=== PATIENT | female | born 1985 | race Caucasian/White ===

== ENCOUNTER 2024-03-26 07:30 | Outpatient (RCR) | payer BC, SELFPAY ==
--- NOTE | 2024-01-16 16:02 | PT.OTN ---
Current Diagnoses Mixed incontinence (01/16/24) Other female genital prolapse (01/16/24) Physical Therapy Treatment Note PT-OP-A Visit Information Start: 01/10/24 20:03 Freq: Status: Active Protocol: Document 01/16/24 07:32 LRN (Rec: 01/16/24 08:20 LRN [id number]) Out-Patient Physical Therapy Visit Information Visit Information Visit Type Initial Evaluation Visit Start Time 07:32 Visit Stop Time 08:19 Visit Number Evaluation Information Evaluation Date 01/16/24 Precautions Precautions Plan for general surgeon assessment for bleeding with BMs, back/neck pain. PT-OP-B Current Condition Start: 01/10/24 20:03 Freq: Status: Active Protocol: Document 01/16/24 07:32 LRN (Rec: 01/16/24 08:20 LRN [id number]) Current Condition History of Current Condition Onset Date 08/17/23 of angelo. Current Complaints Tightness across PF History of Current Condition Post bladder prolapse with first child 08/17/23. When she beared down she felt a bulge, then heaviness, then constant need to urinate all day. She feels heaviness ( initially felt bulge) with sit <>stand and with walking (baby in front pack carrier)/ exercising. Falling out feeling has gone away because of granulation tissue at opening was surgically fixed 2 -3 wks ago (tissue excised and cauterized). Pt delivered her 8#10 oz daughter in supine and reports had borderline 3rd degree tear up to sphincter and up to labia (top ), with 2 stitches in the sphincter ms to reinforce repair. She reports drinking a gallon of water a day ( reported wgt is 160#). Prior Treatments and Tests None Future Testing and Treatments Planned Is waiting to have Dr. garrett with general surgeon for bleeding with BMs. Treatment Goals Patient/Caregiver Goals Pt goals: Pt will improve PF strength to be able to sit<>stand and exercise without leaking, Pt will be able to strengthen posterior PF to eliminate uncontrolled flatulence. HEP. Prior Functional Status Baseline Function- Other During had occasional pain in the R hip below pubic symphasis, near vaginal opening. Current Functional Impairments (Reported) Functional Limitations- ADL's Postural deviations (elevated L shoulder and scapula, head/ neck tilted L). Pt is R handed and holds her baby on her L side to work. Functional Limitations- Recreation/ She reports currenty doing a Hobbies Marvin routine, Beach Body Ex on demand, that she did prior to . 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 No childcare at home while working. Borderline 3rd degree tear up to sphincter and up to labia with 2 stitches in spincter ms . Back/neck pain. PT-OP-C Subjective Start: 01/10/24 20:03 Freq: Status: Active Protocol: Document 01/16/24 07:32 LRN (Rec: 01/16/24 13:10 LRN [id number]) Patient Questionnaires Pelvic Pain and Urgency/Frequency Patient Symptom Scale Pelvic Pain Score 17 OP-PT Pain Assessment Location Low back Pain Location Details Across low back. Intensity 4 Scale Used Numeric (0 - 10) Lower Abdomen Pain Location Details Lower abdomen at symphysis pubis and anterior hips Intensity 3 Scale Used Numeric (0 - 10) L Scapula Pain Location Details Medial border of scapula Intensity 6 Scale Used Numeric (0 - 10) PT-OP-I Pelvic Floor Start: 01/10/24 20:03 Freq: Status: Active Protocol: Document 01/16/24 07:32 LRN (Rec: 01/16/24 08:20 LRN [id number]) Pelvic Floor Assessment Urine Urinary Symptoms Urge Sensation,Prolapse, Hesitancy,Dribbling After Urination,Incomplete Emptying, Falling Out Feeling/Heavy Other Urinary Symptoms Heaviness feeling and tightness around the vaginal canal. No feeling of falling out. Leakage Size Small Leakage Cause Exercise,Urge Leaks Per Day unknown Voiding Frequency 8-12x/day Nocturia Leaks at night. Urinates 2x/ night,when Pads Used In 24 Hours 2 Urine Pad Type Panty Liner Bowel Bowel Symptoms Uncontrolled Flatulence,Pain Other Bowel Symptoms Sudden onset with feeling of not able to hold bowels. Has bleeding with BMs due to possibly fissure that is not healing. Pain with BMs. Drinks Metamucil and stool softner daily. Bowel Movement Frequency Daily [place] Stool Chart Type 1-7 4 Pelvic Clock Pelvic Clock 3-6 Tenderness Pelvic Clock 6-9 Tenderness Pelvic Clock Other Extreme tender at 2-9 of PF clock. Inter-Rectal Assessment Deferred due to pending assessment by MD tomorrow. Prolapse Cystocele Grade 2 Perineal Descent Resting Absent Bearing Absent Contraction Ability Manual Muscle Testing Left 2 Manual Muscle Testing Right 2 Manual Muscle Testing Anterior 1 Manual Muscle Testing Posterior 2 Muscle Endurance (Seconds) 6 Number of Quick Contractions In 10 4 Seconds PT-OP-J Posture/Palpation/Skin Start: 01/10/24 20:03 Freq: Status: Active Protocol: Document 01/16/24 07:32 LRN (Rec: 01/16/24 08:20 LRN [id number]) Posture Evaluation Position Standing Head/C-Spine Posture Side Bent Right,C-Spine Flattened Shoulder Posture (L) Elevated Scapula Posture (L) Elevated Pelvis Posture Anteriorly Tilted PT-OP-K Range of Motion Start: 01/10/24 20:03 Freq: Status: Active Protocol: Document 01/16/24 07:32 LRN (Rec: 01/16/24 08:20 LRN [id number]) Lumbar Spine Range of Motion Lumbar Spine Active Degrees Testing Position Standing Flexion 110 Extension 15 Rotation Left 45 Rotation Right 40 Lateral Flexion Left 10 Lateral Flexion Right 15 Hip Goniometric Range of Motion Hip Right Passive Testing Position Supine Internal Rotation 20 External Rotation 55 Left Passive Testing Position Supine Internal Rotation 25 External Rotation 50 PT-OP-M Strength Start: 01/10/24 20:03 Freq: Status: Active Protocol: Document 01/16/24 07:32 LRN (Rec: 01/16/24 08:20 LRN [id number]) Hip Strength Hip Manual Muscle Testing Right Flexion (L2) 4+ Good+ Extension (S1) 3+ Fair+ Adduction 3 Fair External Rotation 3+ Fair+ Internal Rotation 3+ Fair+ Left Flexion (L2) 4+ Good+ External Rotation 3+ Fair+ Internal Rotation 5 Normal PT-OP-Q Treatments Start: 01/10/24 20:03 Freq: Status: Active Protocol: Document 01/16/24 07:32 LRN (Rec: 01/16/24 13:14 LRN [id number]) Self-Care/Home Management Treatment Education Other Education Discussed results of evaluation, goals, treatment, and plan of care (POC) with pt , attendance/cx/dns policy; pt agreeable to evaluation, goals, treatment, attendance/ cx/dns policy and POC. Discussed and educated pt in specifics for completion of in use of Bladder Diary and I/S in tracking for 1 week. Activities Self-Care/Home Management Activities Issued & reviewed HEP: Syl ex's and discussed exercise of Quick Flicks, Long Holds and Aggravators (sit>stand, walking, ex). PT-OP-T Assessment and Plan Start: 01/10/24 20:03 Freq: Status: Active Protocol: Document 01/16/24 07:32 LRN (Rec: 01/16/24 08:20 LRN [id number]) Physical Therapy Assessment Rehab Potential Rehabilitation Potential Good Evaluation Complexity Number of Personal Factors/Comorbidities 1-2 Number of Body Systems Impaired 4 or More Clinical Presentation at Evaluation Evolving Impairments Impairments Activity Tolerance,Pain, Posture,ROM,Soft Tissue Mobility,Strength,Transfers Other Impairments Core weakness. Pt not yet checked for diastasis rectus. Mixed urinary incontinence ( primarily stress incontinence) . Uncontrolled flatulence, bleeding with BM's that is currently medically being assessed for. Goals Five Impairment PF pain 3-9 of PF clock and at transverse perineum Short Term Goal (STG) Decrease PF pain with pressure with pt able to tolerate use of Vemg biofeedback for PF strengthening. STG Duration 02/28/24 Forming And Assembling Supervisor Goal (LTG) Decrease PF pain with pt able to perform 7-8 PF contractions in 10 secs and hold a PF contraction for 10 secs per Vemg assessment. LTG Duration 05/10/24 Four Impairment PF heaviness, occasional pain on R side PF (transv perineum) Short Term Goal (STG) Improve core strength with no doming present with head lift. STG Duration 02/28/24 Usp Goal (LTG) Improve PF/core strength and hip mobility to eliminate heaviness and pain of abdomen and R PF. LTG Duration 05/10/24 Three Impairment Stress urinary incontinence w/ primarily sit>stand, walking, exercise Short Term Goal (STG) Pt will demonstrate knowledge of urge deference technique to eliminate urinary leakage with a strong urge. STG Duration 02/28/24 Usp Goal (LTG) Reduce PF pain and improve PF strength to be able to sit<> stand and exercise without leaking, LTG Duration 05/10/24 Two Impairment Posterior PF weakness w/ uncontrolled flatulence, PUF 17 Short Term Goal (STG) Pt educated in log roll transfer to decrease core pressure and improve gas plant specialist PF strength. STG Duration 02/28/24 Usp Goal (LTG) Pt will be able to strengthen posterior PF to eliminate uncontrolled flatulence. LTG Duration 05/10/24 One Impairment Pt lacks an independent self care PF HEP. Short Term Goal (STG) Pt will report reduced LBP with improved body mechanics for ADLs at home, and demonstrate knowledge of proper sitting/standing posture. STG Duration 02/28/24 Usp Goal (LTG) Pt will be independent in an effective self care HEP for core/hip strengthening and mobility ex's. LTG Duration 04/10/24 Assessment Summary Assessment Pt is a 38 yo female, post- ~5 months with daughter born 08/17/23 being seen for stress incontinence with sit> stand, walking ex (holding baby in front pack). Pt's feeling of falling out has resolved following surgery and now is noting incontinence with stress and with sudden urge. She has slightly limited trunk R SB mobility, and is decr'd in hip mobility with IR and mildly with ER; and decr'd hip strength with occasional pain at area of R transverse perineum. Postural deviation of a head tilted right, elevated L shoulder & scapula. PUF score 17. The pt is extremely tender to palpation in the PF and did not tolerate much pressure; therefore progress is expected to be slow. The pt will benefit from skilled physical therapy to achieve the above stated goals. Physical Therapy Plan Frequency and Duration Frequency of Treatment 1x/Week Duration of treatment (weeks) 16 Plan of Care Start Date 01/16/24 Plan of Care End Date 05/10/24 Therapeutic Interventions Therapeutic Interventions Coordination Training,Home Exercise Program,Joint Mobilizations,Manual Therapy, Neuromuscular Re-education, Patient/Caregiver Education, Self-Care/Home Management,Soft Tissue Mobilization,Taping, Therapeutic Activities, Therapeutic Exercises Modalities Biofeedback Next Visit Focus/Plan Next Note Type Treatment Note Next Visit Plan Gentle PF stretching (most tender 3-9 of PF clock) working towards use of Vemg placement for assessment; assess for proper deep breathing. Hip stretches: R>L IR, for 1-2 wks: R ER, trunk SB left. Reduction of intra-abdominal pressure with transfers, exercise, and proper breathing with ADLs/body mechanics. Education in vulvar/genital care. Biofeedback assessment/ training for PF relaxation with vaginal/rectal/surface sensor(s) when vaginal infection cleared (1-2 wks). POC: Pt education, Manual therapy. Biofeedback with vaginal sensor. Therapeutic Exercises, Therapeutic Activities, Neuromuscular Reeducation.
--- NOTE | 2024-01-23 16:15 | PT.OTN ---
Current Diagnoses Mixed incontinence (01/23/24) Other female genital prolapse (01/23/24) Physical Therapy Treatment Note PT-OP-A Visit Information Start: 01/10/24 20:03 Freq: Status: Active Protocol: Document 01/23/24 07:33 LRN (Rec: 01/23/24 08:19 LRN [id number]) Out-Patient Physical Therapy Visit Information Visit Information Visit Type Treatment Note Visit Start Time 07:31 Visit Stop Time 08:12 Visit Number 2 Evaluation Information Evaluation Date 01/16/24 Precautions Precautions Plan for general surgeon assessment for bleeding with BMs, back/neck pain. PT-OP-B Current Condition Start: 01/10/24 20:03 Freq: Status: Active Protocol: Document 01/16/24 07:32 LRN (Rec: 01/16/24 08:20 LRN [id number]) Current Condition History of Current Condition Onset Date 08/17/23 of angelo. Current Complaints Tightness across PF History of Current Condition Post bladder prolapse with first child 08/17/23. When she beared down she felt a bulge, then heaviness, then constant need to urinate all day. She feels heaviness ( initially felt bulge) with sit <>stand and with walking (baby in front pack carrier)/ exercising. Falling out feeling has gone away because of granulation tissue at opening was surgically fixed 2 -3 wks ago (tissue excised and cauterized). Pt delivered her 8#10 oz daughter in supine and reports had borderline 3rd degree tear up to sphincter and up to labia (top ), with 2 stitches in the sphincter ms to reinforce repair. She reports drinking a gallon of water a day ( reported wgt is 160#). Prior Treatments and Tests None Future Testing and Treatments Planned Is waiting to have Dr. garrett with general surgeon for bleeding with BMs. Treatment Goals Patient/Caregiver Goals Pt goals: Pt will improve PF strength to be able to sit<>stand and exercise without leaking, Pt will be able to strengthen posterior PF to eliminate uncontrolled flatulence. HEP. Prior Functional Status Baseline Function- Other During had occasional pain in the R hip below pubic symphasis, near vaginal opening. Current Functional Impairments (Reported) Functional Limitations- ADL's Postural deviations (elevated L shoulder and scapula, head/ neck tilted L). Pt is R handed and holds her baby on her L side to work. Functional Limitations- Recreation/ She reports currenty doing a Hobbies Marvin routine, Beach Body Ex on demand, that she did prior to . 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 No childcare at home while working. Borderline 3rd degree tear up to sphincter and up to labia with 2 stitches in spincter ms . Back/neck pain. PT-OP-C Subjective Start: 01/10/24 20:03 Freq: Status: Active Protocol: Document 01/23/24 07:33 LRN (Rec: 01/23/24 08:19 LRN [id number]) OP-PT Subjective Patient Comments Patient Comments c/o Pain across the lower abdomen with TA contraction. States no leakage with urge, only when standing after voiding or with sit<>stand transfer. PT-OP-I Pelvic Floor Start: 01/10/24 20:03 Freq: Status: Active Protocol: Document 01/16/24 07:32 LRN (Rec: 01/16/24 08:20 LRN [id number]) Pelvic Floor Assessment Urine Urinary Symptoms Urge Sensation,Prolapse, Hesitancy,Dribbling After Urination,Incomplete Emptying, Falling Out Feeling/Heavy Other Urinary Symptoms Heaviness feeling and tightness around the vaginal canal. No feeling of falling out. Leakage Size Small Leakage Cause Exercise,Urge Leaks Per Day unknown Voiding Frequency 8-12x/day Nocturia Leaks at night. Urinates 2x/ night,when Pads Used In 24 Hours 2 Urine Pad Type Panty Liner Bowel Bowel Symptoms Uncontrolled Flatulence,Pain Other Bowel Symptoms Sudden onset with feeling of not able to hold bowels. Has bleeding with BMs due to possibly fissure that is not healing. Pain with BMs. Drinks Metamucil and stool softner daily. Bowel Movement Frequency Daily [place] Stool Chart Type 1-7 4 Pelvic Clock Pelvic Clock 3-6 Tenderness Pelvic Clock 6-9 Tenderness Pelvic Clock Other Extreme tender at 2-9 of PF clock. Inter-Rectal Assessment Deferred due to pending assessment by MD tomorrow. Prolapse Cystocele Grade 2 Perineal Descent Resting Absent Bearing Absent Contraction Ability Manual Muscle Testing Left 2 Manual Muscle Testing Right 2 Manual Muscle Testing Anterior 1 Manual Muscle Testing Posterior 2 Muscle Endurance (Seconds) 6 Number of Quick Contractions In 10 4 Seconds PT-OP-J Posture/Palpation/Skin Start: 01/10/24 20:03 Freq: Status: Active Protocol: Document 01/16/24 07:32 LRN (Rec: 01/16/24 08:20 LRN [id number]) Posture Evaluation Position Standing Head/C-Spine Posture Side Bent Right,C-Spine Flattened Shoulder Posture (L) Elevated Scapula Posture (L) Elevated Pelvis Posture Anteriorly Tilted PT-OP-K Range of Motion Start: 01/10/24 20:03 Freq: Status: Active Protocol: Document 01/16/24 07:32 LRN (Rec: 01/16/24 08:20 LRN [id number]) Lumbar Spine Range of Motion Lumbar Spine Active Degrees Testing Position Standing Flexion 110 Extension 15 Rotation Left 45 Rotation Right 40 Lateral Flexion Left 10 Lateral Flexion Right 15 Hip Goniometric Range of Motion Hip Right Passive Testing Position Supine Internal Rotation 20 External Rotation 55 Left Passive Testing Position Supine Internal Rotation 25 External Rotation 50 PT-OP-M Strength Start: 01/10/24 20:03 Freq: Status: Active Protocol: Document 01/16/24 07:32 LRN (Rec: 01/16/24 08:20 LRN [id number]) Hip Strength Hip Manual Muscle Testing Right Flexion (L2) 4+ Good+ Extension (S1) 3+ Fair+ Adduction 3 Fair External Rotation 3+ Fair+ Internal Rotation 3+ Fair+ Left Flexion (L2) 4+ Good+ External Rotation 3+ Fair+ Internal Rotation 5 Normal PT-OP-Q Treatments Start: 01/10/24 20:03 Freq: Status: Active Protocol: Document 01/23/24 07:33 LRN (Rec: 01/23/24 08:19 LRN [id number]) Therapeutic Exercises Supine Exercises Wedge/Kegel/hip AB Reps/Minutes quick x 10 & long hold (10 secs) x 8 Wedge/Kegel Reps/Minutes quick x 1 & long hold (10 secs ) Comments pt c/o tightness across lower abdomen with long holds Kegel Supine Exercise Name Kegel w/o use of substitute ms . Reps/Minutes 10 SH x 4 (10') Comments At end of 4 reps pt reported groin pain, xtra time for kegel trng. Therapeutic Activity Therapeutic Activity Transfers coordinating breath/Kegel Reps/Minutes 8' Comments Cuing for sequencing of each step. Manual Therapy Treatment Consent Patient gave verbal consent for manual Yes treatment Soft Tissue Mobilization External PF Body Location Superficial transverse perineal, ischio & bulbo - cavernosus ms Mobilization Type Trigger Point Release Intensity/Depth Superficial Comments Pt very tender to touch, but had + response with fairly quick ms relaxation w/ treatment. Self-Care/Home Management Treatment Activities Self-Care/Home Management Activities Issued & reviewed HEP: Transfers w/core pressure mgmt /Kegel & Kegel/TA with hip ER & hip ER strengthening. PT-OP-T Assessment and Plan Start: 01/10/24 20:03 Freq: Status: Active Protocol: Document 01/23/24 07:33 LRN (Rec: 01/23/24 08:19 LRN [id number]) Physical Therapy Assessment Goals Five Impairment PF pain 3-9 of PF clock and at transverse perineum Short Term Goal (STG) Decrease PF pain with pressure with pt able to tolerate use of Vemg biofeedback for PF strengthening. STG Duration 02/28/24 Marshmallow Maker Goal (LTG) Decrease PF pain with pt able to perform 7-8 PF contractions in 10 secs and hold a PF contraction for 10 secs per Vemg assessment. LTG Duration 05/10/24 Four Impairment PF heaviness, occasional pain on R side PF (transv perineum) Short Term Goal (STG) Improve core strength with no doming present with head lift. STG Duration 02/28/24 Penitentiary Goal (LTG) Improve PF/core strength and hip mobility to eliminate heaviness and pain of abdomen and R PF. LTG Duration 05/10/24 Three Impairment Stress urinary incontinence w/ primarily sit>stand, walking, exercise Short Term Goal (STG) Pt will demonstrate knowledge of urge deference technique to eliminate urinary leakage with a strong urge. STG Duration 02/28/24 Marshmallow Maker Goal (LTG) Reduce PF pain and improve PF strength to be able to sit<> stand and exercise without leaking, LTG Duration 05/10/24 Two Impairment Posterior PF weakness w/ uncontrolled flatulence, PUF 17 Short Term Goal (STG) Pt educated in log roll transfer to decrease core pressure and improve chronic condition nurse PF strength. STG Duration 02/28/24 Penitentiary Goal (LTG) Pt will be able to strengthen posterior PF to eliminate uncontrolled flatulence. LTG Duration 05/10/24 One Impairment Pt lacks an independent self care PF HEP. Short Term Goal (STG) Pt will report reduced LBP with improved body mechanics for ADLs at home, and demonstrate knowledge of proper sitting/standing posture. STG Duration 02/28/24 Marshmallow Maker Goal (LTG) Pt will be independent in an effective self care HEP for core/hip strengthening and mobility ex's. 01/23/24: HEP: Transfers w/ core pressure mgmt/Kegel & Kegel/TA with hip ER & hip ER strengthening. LTG Duration 04/10/24 progressed Assessment Summary Assessment Pt is a 38 yo female, post- ~5 months with daughter born 08/17/23 being seen for stress incontinence with sit> stand, walking for ex (holding baby in front pack) with falling out feeling resolved after surgery; decr'd slight trunk R SB mobility, and decr' d hip IR/mild ER mobility and hip strength with occasional pain at R transverse perineum. Standing postural changes from . Today, the pt shows good understanding of proper core pressure mgmt with transfers. Further review of deep breathing and Kegel/hip AB ex is needed. Pt had poor tolerance to PF palpation; therefore chose to start with release of external PF ms to relieve pain, + response to external PF stretching with lessening of pressure feeling in lower ab after treatment and pt feeling like she had worked the muscles. Physical Therapy Plan Frequency and Duration Frequency of Treatment 1x/Week Duration of treatment (weeks) 16 Plan of Care Start Date 01/16/24 Plan of Care End Date 05/10/24 Next Visit Focus/Plan Next Note Type Treatment Note Next Visit Plan Check for urinary leakage and need for urge deference technique. Review/assess for proper deep breathing. Review Kegels/Hip AB strengthening ( clamshell, hip AB) & transfers managing core pressure. Next : Educate in log roll transfer to decrease core pressure and improve chronic condition nurse PF strength. Gentle PF stretching (most tender 3-9 of PF clock) working towards use of Vemg placement for assessment. Hip stretches: R>L IR, for 1-2 wks: R ER, trunk SB left. Ex 's for postural changes. Monitor for behavioral changes for reduction of intra- abdominal pressure with transfers, exercise, and proper breathing with ADLs/ body mechanics. Education in vulvar/genital care. Biofeedback assessment/ training for PF relaxation with vaginal/rectal/surface sensor(s) when vaginal infection cleared (1-2 wks). POC: Pt education, Manual therapy. Biofeedback with vaginal sensor. Therapeutic Exercises, Therapeutic Activities, Neuromuscular Reeducation.
--- NOTE | 2024-01-27 15:04 | PT.OTN ---
Current Diagnoses Mixed incontinence (01/27/24) Other female genital prolapse (01/27/24) Physical Therapy Treatment Note PT-OP-A Visit Information Start: 01/10/24 20:03 Freq: Status: Active Protocol: Document 01/27/24 13:50 LRN (Rec: 01/27/24 14:34 LRN [id number]) Out-Patient Physical Therapy Visit Information Visit Information Visit Type Treatment Note Visit Start Time 13:50 Visit Stop Time 14:30 Visit Number Evaluation Information Evaluation Date 01/16/24 Precautions Precautions Plan for general surgeon assessment for bleeding with BMs, back/neck pain. PT-OP-B Current Condition Start: 01/10/24 20:03 Freq: Status: Active Protocol: Document 01/16/24 07:32 LRN (Rec: 01/16/24 08:20 LRN [id number]) Current Condition History of Current Condition Onset Date 08/17/23 of angelo. Current Complaints Tightness across PF History of Current Condition Post bladder prolapse with first child 08/17/23. When she beared down she felt a bulge, then heaviness, then constant need to urinate all day. She feels heaviness ( initially felt bulge) with sit <>stand and with walking (baby in front pack carrier)/ exercising. Falling out feeling has gone away because of granulation tissue at opening was surgically fixed 2 -3 wks ago (tissue excised and cauterized). Pt delivered her 8#10 oz daughter in supine and reports had borderline 3rd degree tear up to sphincter and up to labia (top ), with 2 stitches in the sphincter ms to reinforce repair. She reports drinking a gallon of water a day ( reported wgt is 160#). Prior Treatments and Tests None Future Testing and Treatments Planned Is waiting to have Dr. garrett with general surgeon for bleeding with BMs. Treatment Goals Patient/Caregiver Goals Pt goals: Pt will improve PF strength to be able to sit<>stand and exercise without leaking, Pt will be able to strengthen posterior PF to eliminate uncontrolled flatulence. HEP. Prior Functional Status Baseline Function- Other During had occasional pain in the R hip below pubic symphasis, near vaginal opening. Current Functional Impairments (Reported) Functional Limitations- ADL's Postural deviations (elevated L shoulder and scapula, head/ neck tilted L). Pt is R handed and holds her baby on her L side to work. Functional Limitations- Recreation/ She reports currenty doing a Hobbies Marvin routine, Beach Body Ex on demand, that she did prior to . 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 No childcare at home while working. Borderline 3rd degree tear up to sphincter and up to labia with 2 stitches in spincter ms . Back/neck pain. PT-OP-C Subjective Start: 01/10/24 20:03 Freq: Status: Active Protocol: Document 01/27/24 13:50 LRN (Rec: 01/27/24 14:34 LRN [id number]) OP-PT Subjective Patient Comments Patient Comments Not as tight. Hasn't noticed as much urine on her pantiliner in the morning. Is not leaking with a strong urge, but feels like her bowel urges are stronger and feels like she may have problem holding her bowels. PT-OP-I Pelvic Floor Start: 01/10/24 20:03 Freq: Status: Active Protocol: Document 01/16/24 07:32 LRN (Rec: 01/16/24 08:20 LRN [id number]) Pelvic Floor Assessment Urine Urinary Symptoms Urge Sensation,Prolapse, Hesitancy,Dribbling After Urination,Incomplete Emptying, Falling Out Feeling/Heavy Other Urinary Symptoms Heaviness feeling and tightness around the vaginal canal. No feeling of falling out. Leakage Size Small Leakage Cause Exercise,Urge Leaks Per Day unknown Voiding Frequency 8-12x/day Nocturia Leaks at night. Urinates 2x/ night,when Pads Used In 24 Hours 2 Urine Pad Type Panty Liner Bowel Bowel Symptoms Uncontrolled Flatulence,Pain Other Bowel Symptoms Sudden onset with feeling of not able to hold bowels. Has bleeding with BMs due to possibly fissure that is not healing. Pain with BMs. Drinks Metamucil and stool softner daily. Bowel Movement Frequency Daily Stem Stool Chart Type 1-7 4 Pelvic Clock Pelvic Clock 3-6 Tenderness Pelvic Clock 6-9 Tenderness Pelvic Clock Other Extreme tender at 2-9 of PF clock. Inter-Rectal Assessment Deferred due to pending assessment by MD tomorrow. Prolapse Cystocele Grade 2 Perineal Descent Resting Absent Bearing Absent Contraction Ability Manual Muscle Testing Left 2 Manual Muscle Testing Right 2 Manual Muscle Testing Anterior 1 Manual Muscle Testing Posterior 2 Muscle Endurance (Seconds) 6 Number of Quick Contractions In 10 4 Seconds PT-OP-J Posture/Palpation/Skin Start: 01/10/24 20:03 Freq: Status: Active Protocol: Document 01/16/24 07:32 LRN (Rec: 01/16/24 08:20 LRN [id number]) Posture Evaluation Position Standing Head/C-Spine Posture Side Bent Right,C-Spine Flattened Shoulder Posture (L) Elevated Scapula Posture (L) Elevated Pelvis Posture Anteriorly Tilted PT-OP-K Range of Motion Start: 01/10/24 20:03 Freq: Status: Active Protocol: Document 01/16/24 07:32 LRN (Rec: 01/16/24 08:20 LRN [id number]) Lumbar Spine Range of Motion Lumbar Spine Active Degrees Testing Position Standing Flexion 110 Extension 15 Rotation Left 45 Rotation Right 40 Lateral Flexion Left 10 Lateral Flexion Right 15 Hip Goniometric Range of Motion Hip Right Passive Testing Position Supine Internal Rotation 20 External Rotation 55 Left Passive Testing Position Supine Internal Rotation 25 External Rotation 50 PT-OP-M Strength Start: 01/10/24 20:03 Freq: Status: Active Protocol: Document 01/16/24 07:32 LRN (Rec: 01/16/24 08:20 LRN [id number]) Hip Strength Hip Manual Muscle Testing Right Flexion (L2) 4+ Good+ Extension (S1) 3+ Fair+ Adduction 3 Fair External Rotation 3+ Fair+ Internal Rotation 3+ Fair+ Left Flexion (L2) 4+ Good+ External Rotation 3+ Fair+ Internal Rotation 5 Normal PT-OP-Q Treatments Start: 01/10/24 20:03 Freq: Status: Active Protocol: Document 01/27/24 13:50 LRN (Rec: 01/27/24 14:34 LRN [id number]) Therapeutic Exercises Supine Exercises Wedge/Roll in-outs Supine Exercise Name With TBand and Ball squeeze Reps/Minutes 8' Comments Extra time for sequencing, required constant cuing initially. Wedge/Kegel Reps/Minutes quick 2x 10 & long hold (8 secs) x 4 Comments tightness across lower abdomen with long holds, not as tiring Sidelying Exercises TA tightening Sidelying Exercise Name hips flexed 45 deg's and hips at neutral Side bilateral Resistance lwer abdomen hudson more in L sidelie Reps/Minutes 10 SH x 3 each Comments Cued head in neutral. Buring of abdomen at 3rd rep. Therapeutic Activity Therapeutic Activity Transfers coordinating breath/Kegel Name Reviewed transfers w/core pressure mgmt and practiced more sit<>supine Reps/Minutes 3' Comments Cuing needed for the sequence of exhale with exertion or flex of trunk Manual Therapy Treatment Soft Tissue Mobilization External PF Body Location Superficial transverse perineal, ischio & bulbo - cavernosus ms Mobilization Type Trigger Point Release Intensity/Depth Superficial Comments Tender primarily at 2-5 of PF clock. Not able to get soft tissue release. Self-Care/Home Management Treatment Education Other Education Educated pt in self stretching of PF externally to start and superficail internally. Activities Self-Care/Home Management Activities Issued & reviewed HEP: LE roll in-outs. Issued Small Wand for self stretching. PT-OP-T Assessment and Plan Start: 01/10/24 20:03 Freq: Status: Active Protocol: Document 01/27/24 13:50 LRN (Rec: 01/27/24 14:34 LRN [id number]) Physical Therapy Assessment Goals Five Impairment PF pain 3-9 of PF clock and at transverse perineum Short Term Goal (STG) Decrease PF pain with pressure with pt able to tolerate use of Vemg biofeedback for PF strengthening. STG Duration 02/28/24 Nightclub Manager Goal (LTG) Decrease PF pain with pt able to perform 7-8 PF contractions in 10 secs and hold a PF contraction for 10 secs per Vemg assessment. LTG Duration 05/10/24 Four Impairment PF heaviness, occasional pain on R side PF (transv perineum) Short Term Goal (STG) Improve core strength with no doming present with head lift. STG Duration 02/28/24 Nightclub Manager Goal (LTG) Improve PF/core strength and hip mobility to eliminate heaviness and pain of abdomen and R PF. LTG Duration 05/10/24 Three Impairment Stress urinary incontinence w/ primarily sit>stand, walking, exercise Short Term Goal (STG) Pt will demonstrate knowledge of urge deference technique to eliminate urinary leakage with a strong urge. STG Duration 02/28/24 Senior Care Goal (LTG) Reduce PF pain and improve PF strength to be able to sit<> stand and exercise without leaking. LTG Duration 05/10/24 Two Impairment Posterior PF weakness w/ uncontrolled flatulence, PUF 17 Short Term Goal (STG) Pt educated in log roll transfer to decrease core pressure and improve field artillery senior sergeant PF strength. 01/27/24: Review of transfer with core pressure relief from last session. STG Duration 02/28/24 progressed 01/27/24 (transfer w/field artillery senior sergeant PF strengthening) Nightclub Manager Goal (LTG) Pt will be able to strengthen posterior PF to eliminate uncontrolled flatulence. 01/27/24: HEP of posterior resisted claudia BKFO with hips elevated. LTG Duration 05/10/24 progressed 01/27/24 One Impairment Pt lacks an independent self care PF HEP. Short Term Goal (STG) Pt will report reduced LBP with improved body mechanics for ADLs at home, and demonstrate knowledge of proper sitting/standing posture. STG Duration 02/28/24 Nightclub Manager Goal (LTG) Pt will be independent in an effective self care HEP for core/hip strengthening and mobility ex's. 01/23/24: HEP: Transfers w/ core pressure mgmt/Kegel & Kegel/TA with hip ER & hip ER strengthening. LTG Duration 04/10/24 progressed Assessment Summary Assessment Pt is a 38 yo female, post- ~5 months w/AMBER, weak core, dec'd hip/trunk mobility and hip strength. Today pt notes not having trouble making it to bathroom with an urge urinary leakage a little better, not as much urine on pad. She is weak in TA, weaker in L sidelie with weakness in R lat trunk. Pt did well with LE roll in-outs, but needed concentration to coordinate Kegel with breathing in. Pt good with deep breathing, but still breaths uncoordinated through chest. Physical Therapy Plan Frequency and Duration Frequency of Treatment 1x/Week Duration of treatment (weeks) 16 Plan of Care Start Date 01/16/24 Plan of Care End Date 05/10/24 Next Visit Focus/Plan Next Note Type Treatment Note Next Visit Plan Assess again for proper deep breathing. Cont Wedge/Kegels/ Hip AB strengthening & assess transfers managing core pressure. Next: Educate in log roll transfer to improve field artillery senior sergeant PF strength. Monitor for behavioral changes for reduction of intra-abdominal pressure with transfers, exercise, and proper breathing with ADLs/body mechanics. Gentle PF stretching (most tender 3-9 of PF clock) working towards use of Vemg placement for assessment. Add Hip stretches: R>L IR, for 1-2 wks: R ER, trunk SB left. Ex's for postural changes. Education in vulvar/genital care. Biofeedback assessment/ training for PF relaxation with vaginal/rectal/surface sensor(s) when vaginal infection cleared (1-2 wks). POC: Pt education, Manual therapy. Biofeedback with vaginal sensor. Therapeutic Exercises, Therapeutic Activities, Neuromuscular Reeducation.
--- NOTE | 2024-02-20 12:21 | PT.OTN ---
Current Diagnoses Mixed incontinence (02/20/24) Other female genital prolapse (02/20/24) Physical Therapy Treatment Note PT-OP-A Visit Information Start: 01/10/24 20:03 Freq: Status: Active Protocol: Document 02/20/24 07:36 LRN (Rec: 02/20/24 08:19 LRN [id number]) Out-Patient Physical Therapy Visit Information Visit Information Visit Type Treatment Note Visit Start Time 07:36 Visit Stop Time 08:14 Visit Number Evaluation Information Evaluation Date 01/16/24 Precautions Precautions Plan for general surgeon assessment for bleeding with BMs, back/neck pain. PT-OP-B Current Condition Start: 01/10/24 20:03 Freq: Status: Active Protocol: Document 01/16/24 07:32 LRN (Rec: 01/16/24 08:20 LRN [id number]) Current Condition History of Current Condition Onset Date 08/17/23 of angelo. Current Complaints Tightness across PF History of Current Condition Post bladder prolapse with first child 08/17/23. When she beared down she felt a bulge, then heaviness, then constant need to urinate all day. She feels heaviness ( initially felt bulge) with sit <>stand and with walking (baby in front pack carrier)/ exercising. Falling out feeling has gone away because of granulation tissue at opening was surgically fixed 2 -3 wks ago (tissue excised and cauterized). Pt delivered her 8#10 oz daughter in supine and reports had borderline 3rd degree tear up to sphincter and up to labia (top ), with 2 stitches in the sphincter ms to reinforce repair. She reports drinking a gallon of water a day ( reported wgt is 160#). Prior Treatments and Tests None Future Testing and Treatments Planned Is waiting to have Dr. garrett with general surgeon for bleeding with BMs. Treatment Goals Patient/Caregiver Goals Pt goals: Pt will improve PF strength to be able to sit<>stand and exercise without leaking, Pt will be able to strengthen posterior PF to eliminate uncontrolled flatulence. HEP. Prior Functional Status Baseline Function- Other During had occasional pain in the R hip below pubic symphasis, near vaginal opening. Current Functional Impairments (Reported) Functional Limitations- ADL's Postural deviations (elevated L shoulder and scapula, head/ neck tilted L). Pt is R handed and holds her baby on her L side to work. Functional Limitations- Recreation/ She reports currenty doing a Hobbies Marvin routine, Beach Body Ex on demand, that she did prior to . 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 No childcare at home while working. Borderline 3rd degree tear up to sphincter and up to labia with 2 stitches in spincter ms . Back/neck pain. PT-OP-C Subjective Start: 01/10/24 20:03 Freq: Status: Active Protocol: Document 02/20/24 07:36 LRN (Rec: 02/20/24 08:19 LRN [id number]) OP-PT Subjective Patient Comments Patient Comments Hasn't heard from re: blood in stool. Not as much feeling of urgency getting up to move around. Pain spasm in butt cheek (in L OI location) that radiates up to L hip flexor. States it happened twice, lasting 20 minutes (did not stretch her PF that day). Tenderness today in PF is a little less overall. States having Sciatic pain as well as the buttock pain. PT-OP-I Pelvic Floor Start: 01/10/24 20:03 Freq: Status: Active Protocol: Document 01/16/24 07:32 LRN (Rec: 01/16/24 08:20 LRN [id number]) Pelvic Floor Assessment Urine Urinary Symptoms Urge Sensation,Prolapse, Hesitancy,Dribbling After Urination,Incomplete Emptying, Falling Out Feeling/Heavy Other Urinary Symptoms Heaviness feeling and tightness around the vaginal canal. No feeling of falling out. Leakage Size Small Leakage Cause Exercise,Urge Leaks Per Day unknown Voiding Frequency 8-12x/day Nocturia Leaks at night. Urinates 2x/ night,when Pads Used In 24 Hours 2 Urine Pad Type Panty Liner Bowel Bowel Symptoms Uncontrolled Flatulence,Pain Other Bowel Symptoms Sudden onset with feeling of not able to hold bowels. Has bleeding with BMs due to possibly fissure that is not healing. Pain with BMs. Drinks Metamucil and stool softner daily. Bowel Movement Frequency Daily [place] Stool Chart Type 1-7 4 Pelvic Clock Pelvic Clock 3-6 Tenderness Pelvic Clock 6-9 Tenderness Pelvic Clock Other Extreme tender at 2-9 of PF clock. Inter-Rectal Assessment Deferred due to pending assessment by MD tomorrow. Prolapse Cystocele Grade 2 Perineal Descent Resting Absent Bearing Absent Contraction Ability Manual Muscle Testing Left 2 Manual Muscle Testing Right 2 Manual Muscle Testing Anterior 1 Manual Muscle Testing Posterior 2 Muscle Endurance (Seconds) 6 Number of Quick Contractions In 10 4 Seconds PT-OP-J Posture/Palpation/Skin Start: 01/10/24 20:03 Freq: Status: Active Protocol: Document 01/16/24 07:32 LRN (Rec: 01/16/24 08:20 LRN [id number]) Posture Evaluation Position Standing Head/C-Spine Posture Side Bent Right,C-Spine Flattened Shoulder Posture (L) Elevated Scapula Posture (L) Elevated Pelvis Posture Anteriorly Tilted PT-OP-K Range of Motion Start: 01/10/24 20:03 Freq: Status: Active Protocol: Document 01/16/24 07:32 LRN (Rec: 01/16/24 08:20 LRN [id number]) Lumbar Spine Range of Motion Lumbar Spine Active Degrees Testing Position Standing Flexion 110 Extension 15 Rotation Left 45 Rotation Right 40 Lateral Flexion Left 10 Lateral Flexion Right 15 Hip Goniometric Range of Motion Hip Right Passive Testing Position Supine Internal Rotation 20 External Rotation 55 Left Passive Testing Position Supine Internal Rotation 25 External Rotation 50 PT-OP-M Strength Start: 01/10/24 20:03 Freq: Status: Active Protocol: Document 01/16/24 07:32 LRN (Rec: 01/16/24 08:20 LRN [id number]) Hip Strength Hip Manual Muscle Testing Right Flexion (L2) 4+ Good+ Extension (S1) 3+ Fair+ Adduction 3 Fair External Rotation 3+ Fair+ Internal Rotation 3+ Fair+ Left Flexion (L2) 4+ Good+ External Rotation 3+ Fair+ Internal Rotation 5 Normal PT-OP-Q Treatments Start: 01/10/24 20:03 Freq: Status: Active Protocol: Document 02/20/24 07:36 LRN (Rec: 02/20/24 08:19 LRN [id number]) Therapeutic Exercises Supine Exercises Piriformis Side left Reps/Minutes 3' Comments Ankle over knee tolerated, too much so not able to lift R KTC Reverse Kegel Reps/Minutes 3' Deep Breathing Reps/Minutes 6x Comments Pt able to properly deep breath. Manual Therapy Treatment Soft Tissue Mobilization Internal PF Body Location PF 3-7 Mobilization Type Sustained Pressure,Trigger Point Release Intensity/Depth Superficial Body Position Hooklying Comments TB around knees for hip relaxation. External PF Body Location Superficial transverse perineal, ischio & bulbo - cavernosus, 6 of PF@scar Mobilization Type Trigger Point Release Intensity/Depth Superficial Comments Tender primarily at 2-6 of PF clock. Not able to get soft tissue release. TB around knees for hip relaxation. Self-Care/Home Management Treatment Activities Self-Care/Home Management Activities Issued Lev2 TB for placement around knees for hip relaxation during PF stretching. PT-OP-T Assessment and Plan Start: 01/10/24 20:03 Freq: Status: Active Protocol: Document 02/20/24 07:36 LRN (Rec: 02/20/24 08:19 LRN [id number]) Physical Therapy Assessment Goals Five Impairment PF pain 3-9 of PF clock and at transverse perineum Short Term Goal (STG) Decrease PF pain with pressure with pt able to tolerate use of Vemg biofeedback for PF strengthening. STG Duration 02/28/24 Senior Care Goal (LTG) Decrease PF pain with pt able to perform 7-8 PF contractions in 10 secs and hold a PF contraction for 10 secs per Vemg assessment. LTG Duration 05/10/24 Four Impairment PF heaviness, occasional pain on R side PF (transv perineum) Short Term Goal (STG) Improve core strength with no doming present with head lift. STG Duration 02/28/24 Senior Care Goal (LTG) Improve PF/core strength and hip mobility to eliminate heaviness and pain of abdomen and R PF. LTG Duration 05/10/24 Three Impairment Stress urinary incontinence w/ primarily sit>stand, walking, exercise Short Term Goal (STG) Pt will demonstrate knowledge of urge deference technique to eliminate urinary leakage with a strong urge. STG Duration 02/28/24 Senior Care Goal (LTG) Reduce PF pain and improve PF strength to be able to sit<> stand and exercise without leaking. LTG Duration 05/10/24 Two Impairment Posterior PF weakness w/ uncontrolled flatulence, PUF 17 Short Term Goal (STG) Pt educated in log roll transfer to decrease core pressure and improve hog cutter PF strength. 01/27/24: Review of transfer with core pressure relief from last session. STG Duration 02/28/24 progressed 01/27/24 (transfer w/hog cutter PF strengthening) Senior Care Goal (LTG) Pt will be able to strengthen posterior PF to eliminate uncontrolled flatulence. 01/27/24: HEP of posterior resisted claudia BKFO with hips elevated. LTG Duration 05/10/24 progressed 01/27/24 One Impairment Pt lacks an independent self care PF HEP. Short Term Goal (STG) Pt will report reduced LBP with improved body mechanics for ADLs at home, and demonstrate knowledge of proper sitting/standing posture. STG Duration 02/28/24 [employer] Developer Goal (LTG) Pt will be independent in an effective self care HEP for core/hip strengthening and mobility ex's. 01/23/24: HEP: Transfers w/ core pressure mgmt/Kegel & Kegel/TA with hip ER & hip ER strengthening. 02/20/24: I/S in L Piriformis stretch (only with placing ankle over R knee) LTG Duration 04/10/24 progressed Assessment Summary Assessment 38 yo female, post- w/ AMBER, no longer , very weak PF w/grade 3 cystocele, weak core, dec'd hip/trunk mobility and hip strength. Today, pt demonstrates good deep breathing and good awareness of reverse Kegel. Pt's pain from buttock to L ASIS reproduced from palp of perineal scar from grade 3 tear, and from L OI internal palp stretch. Pt is very tight in PF only on the L, weakness on R (?possible neural involvement). Hip IR is L>R tightness. Physical Therapy Plan Frequency and Duration Frequency of Treatment 1x/Week Duration of treatment (weeks) 16 Plan of Care Start Date 01/16/24 Plan of Care End Date 05/10/24 Next Visit Focus/Plan Next Note Type Treatment Note Next Visit Plan Assess transfers managing core pressure, and review hip IR stretch. Hip stretches: L>R IR, for 1-2 wks: R ER, trunk SB left. Educate urge deference technique. Next: SB rehab: Educate in log roll transfer to decrease PF tone and add PF stretching (Happy Baby Pose). Monitor for behavioral changes for reduction of intra-abdominal pressure with transfers, exercise, and proper breathing with ADLs/body mechanics. Perineal scar mob & gentle PF stretching (most tender 3-9 of PF clock) working towards use of Vemg placement for assessment. Ex's for postural changes. Education in vulvar/genital care. Biofeedback assessment/ training for PF relaxation with vaginal/rectal/surface sensor(s) when vaginal infection cleared (1-2 wks). POC: Pt education, Manual therapy. Biofeedback with vaginal sensor. Therapeutic Exercises, Therapeutic Activities, Neuromuscular Reeducation.
--- NOTE | 2024-03-26 08:35 | PT.OTN ---
Current Diagnoses Mixed incontinence (03/26/24) Other female genital prolapse (03/26/24) Physical Therapy Treatment Note PT-OP-A Visit Information Start: 01/10/24 20:03 Freq: Status: Active Protocol: Document 03/26/24 07:31 LRN (Rec: 03/26/24 08:35 LRN [id number]) Out-Patient Physical Therapy Visit Information Visit Information Visit Type Treatment Note Visit Start Time 07:31 Visit Stop Time 08:14 Visit Number 5 Evaluation Information Evaluation Date 01/16/24 Precautions Precautions Plan for general surgeon assessment for bleeding with BMs, back/neck pain. LBP/hip pain since . PT-OP-B Current Condition Start: 01/10/24 20:03 Freq: Status: Active Protocol: Document 01/16/24 07:32 LRN (Rec: 01/16/24 08:20 LRN [id number]) Current Condition History of Current Condition Onset Date 08/17/23 of angelo. Current Complaints Tightness across PF History of Current Condition Post bladder prolapse with first child 08/17/23. When she beared down she felt a bulge, then heaviness, then constant need to urinate all day. She feels heaviness ( initially felt bulge) with sit <>stand and with walking (baby in front pack carrier)/ exercising. Falling out feeling has gone away because of granulation tissue at opening was surgically fixed 2 -3 wks ago (tissue excised and cauterized). Pt delivered her 8#10 oz daughter in supine and reports had borderline 3rd degree tear up to sphincter and up to labia (top ), with 2 stitches in the sphincter ms to reinforce repair. She reports drinking a gallon of water a day ( reported wgt is 160#). Prior Treatments and Tests None Future Testing and Treatments Planned Is waiting to have Dr. garrett with general surgeon for bleeding with BMs. Treatment Goals Patient/Caregiver Goals Pt goals: Pt will improve PF strength to be able to sit<>stand and exercise without leaking, Pt will be able to strengthen posterior PF to eliminate uncontrolled flatulence. HEP. Prior Functional Status Baseline Function- Other During had occasional pain in the R hip below pubic symphasis, near vaginal opening. Current Functional Impairments (Reported) Functional Limitations- ADL's Postural deviations (elevated L shoulder and scapula, head/ neck tilted L). Pt is R handed and holds her baby on her L side to work. Functional Limitations- Recreation/ She reports currenty doing a Hobbies Marvin routine, Beach Body Ex on demand, that she did prior to . 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 No childcare at home while working. Borderline 3rd degree tear up to sphincter and up to labia with 2 stitches in spincter ms . Back/neck pain. PT-OP-C Subjective Start: 01/10/24 20:03 Freq: Status: Active Protocol: Document 03/26/24 07:31 LRN (Rec: 03/26/24 08:35 LRN [id number]) OP-PT Subjective Patient Comments Patient Comments Subtle things are different by not doing Kegels all the time , doing more relaxation. PF less tight sitting on toilet. Wand stretching with issued wand and her own wand, but akward. c/o L SIJ pain down lateral side of hip. PT-OP-I Pelvic Floor Start: 01/10/24 20:03 Freq: Status: Active Protocol: Document 01/16/24 07:32 LRN (Rec: 01/16/24 08:20 LRN [id number]) Pelvic Floor Assessment Urine Urinary Symptoms Urge Sensation,Prolapse, Hesitancy,Dribbling After Urination,Incomplete Emptying, Falling Out Feeling/Heavy Other Urinary Symptoms Heaviness feeling and tightness around the vaginal canal. No feeling of falling out. Leakage Size Small Leakage Cause Exercise,Urge Leaks Per Day unknown Voiding Frequency 8-12x/day Nocturia Leaks at night. Urinates 2x/ night,when Pads Used In 24 Hours 2 Urine Pad Type Panty Liner Bowel Bowel Symptoms Uncontrolled Flatulence,Pain Other Bowel Symptoms Sudden onset with feeling of not able to hold bowels. Has bleeding with BMs due to possibly fissure that is not healing. Pain with BMs. Drinks Metamucil and stool softner daily. Bowel Movement Frequency Daily [place] Stool Chart Type 1-7 4 Pelvic Clock Pelvic Clock 3-6 Tenderness Pelvic Clock 6-9 Tenderness Pelvic Clock Other Extreme tender at 2-9 of PF clock. Inter-Rectal Assessment Deferred due to pending assessment by tomorrow. Prolapse Cystocele Grade 2 Perineal Descent Resting Absent Bearing Absent Contraction Ability Manual Muscle Testing Left 2 Manual Muscle Testing Right 2 Manual Muscle Testing Anterior 1 Manual Muscle Testing Posterior 2 Muscle Endurance (Seconds) 6 Number of Quick Contractions In 10 4 Seconds PT-OP-J Posture/Palpation/Skin Start: 01/10/24 20:03 Freq: Status: Active Protocol: Document 01/16/24 07:32 LRN (Rec: 01/16/24 08:20 LRN [id number]) Posture Evaluation Position Standing Head/C-Spine Posture Side Bent Right,C-Spine Flattened Shoulder Posture (L) Elevated Scapula Posture (L) Elevated Pelvis Posture Anteriorly Tilted PT-OP-K Range of Motion Start: 01/10/24 20:03 Freq: Status: Active Protocol: Document 01/16/24 07:32 LRN (Rec: 01/16/24 08:20 LRN [id number]) Lumbar Spine Range of Motion Lumbar Spine Active Degrees Testing Position Standing Flexion 110 Extension 15 Rotation Left 45 Rotation Right 40 Lateral Flexion Left 10 Lateral Flexion Right 15 Hip Goniometric Range of Motion Hip Right Passive Testing Position Supine Internal Rotation 20 External Rotation 55 Left Passive Testing Position Supine Internal Rotation 25 External Rotation 50 PT-OP-M Strength Start: 01/10/24 20:03 Freq: Status: Active Protocol: Document 01/16/24 07:32 LRN (Rec: 01/16/24 08:20 LRN [id number]) Hip Strength Hip Manual Muscle Testing Right Flexion (L2) 4+ Good+ Extension (S1) 3+ Fair+ Adduction 3 Fair External Rotation 3+ Fair+ Internal Rotation 3+ Fair+ Left Flexion (L2) 4+ Good+ External Rotation 3+ Fair+ Internal Rotation 5 Normal PT-OP-Q Treatments Start: 01/10/24 20:03 Freq: Status: Active Protocol: Document 03/26/24 07:31 LRN (Rec: 03/26/24 08:35 LRN [id number]) Therapeutic Exercises Supine Exercises Piriformis Side left Reps/Minutes 3' Comments Ankle over knee tolerated, too much so not able to lift R KTC Reverse Kegel Supine Exercise Name Reviewed as pt reported feeling it on toilet. Reps/Minutes 3' Comments I/S pt to not do not do on toilet. Manual Therapy Treatment Consent Patient gave verbal consent for manual Yes treatment Soft Tissue Mobilization Sacral balancing. Body Location Sacrum, Ileums, abdomen, superficial fascia Mobilization Type Myofascial Release Intensity/Depth Superficial Body Position Prone, Abs-sitting Comments SACRAL BALANCING: LOCATION: R Sacral Sulcus PA R Sacral Sulcus inferior glide R ANDREW PA R Ischial Tub PA 6 pt balancing Iliopsoas Pubic Rami superior glide Internal PF Body Location PF 3-7, reviewed technique for home stretch External PF Body Location Reviewed technique for home stretch Self-Care/Home Management Treatment Activities Self-Care/Home Management Activities I/S pt in self care MFR of abdomen moving left to right. PT-OP-T Assessment and Plan Start: 01/10/24 20:03 Freq: Status: Active Protocol: Document 03/26/24 07:31 LRN (Rec: 03/26/24 08:35 LRN [id number]) Physical Therapy Assessment Goals Five Impairment PF pain 3-9 of PF clock and at transverse perineum Short Term Goal (STG) Decrease PF pain with pressure with pt able to tolerate use of Vemg biofeedback for PF strengthening. STG Duration 02/28/24 Cafe Attendant Goal (LTG) Decrease PF pain with pt able to perform 7-8 PF contractions in 10 secs and hold a PF contraction for 10 secs per Vemg assessment. LTG Duration 05/10/24 Four Impairment PF heaviness, occasional pain on R side PF (transv perineum) Short Term Goal (STG) Improve core strength with no doming present with head lift. STG Duration 02/28/24 Half-Way Goal (LTG) Improve PF/core strength and hip mobility to eliminate heaviness and pain of abdomen and R PF. LTG Duration 05/10/24 Three Impairment Stress urinary incontinence w/ primarily sit>stand, walking, exercise Short Term Goal (STG) Pt will demonstrate knowledge of urge deference technique to eliminate urinary leakage with a strong urge. STG Duration 02/28/24 Half-Way Goal (LTG) Reduce PF pain and improve PF strength to be able to sit<> stand and exercise without leaking. LTG Duration 05/10/24 Two Impairment Posterior PF weakness w/ uncontrolled flatulence, PUF 17 Short Term Goal (STG) Pt educated in log roll transfer to decrease core pressure and improve medical record transcriber PF strength. 01/27/24: Review of transfer with core pressure relief from last session. 03/26/24: Reviewed log roll transfer w/TA/PF tight, for core stabilization STG Duration 02/28/24 progressed 03/26/24 (transfer w/medical record transcriber PF strengthening) Half-Way Goal (LTG) Pt will be able to strengthen posterior PF to eliminate uncontrolled flatulence. 01/27/24: HEP of posterior resisted claudia BKFO with hips elevated. LTG Duration 05/10/24 progressed 01/27/24 One Impairment Pt lacks an independent self care PF HEP. Short Term Goal (STG) Pt will report reduced LBP with improved body mechanics for ADLs at home, and demonstrate knowledge of proper sitting/standing posture. 03/26/24: Initiated Sacral balancing and MFR. STG Duration 02/28/24 progressing 03/26/24 Cafe Attendant Goal (LTG) Pt will be independent in an effective self care HEP for core/hip strengthening and mobility ex's. 01/23/24: HEP: Transfers w/ core pressure mgmt/Kegel & Kegel/TA with hip ER & hip ER strengthening. 02/20/24: I/S in L Piriformis stretch (only with placing ankle over R knee) LTG Duration 04/10/24 progressed Assessment Summary Assessment 38 yo female, post- w/ AMBER, not , very weak PF w/grade 3 cystocele, Sacrum stuck on R & in L rot, weak core, dec'd hip/trunk mobility and hip strength. Today, good recall of L hip IR stretch, improved fascial mobilty of L SIJ/across LB, & improved sacral positioning ( less L rot'd), better understanding of log roll technique and now with added Kegel (understanding of breath to help with Kegel still needed). Physical Therapy Plan Frequency and Duration Frequency of Treatment 1x/Week Duration of treatment (weeks) 16 Plan of Care Start Date 01/16/24 Plan of Care End Date 05/10/24 Next Visit Focus/Plan Next Note Type Treatment Note Next Visit Plan Assess for vaginal infection? Recheck if L hip IR PROM has improved (Hip stretch if needed: L>R IR, for 2 more wks ). Add: R ER, trunk SB left. Review for knowledge: log roll transfer w/TA/Kegel to decrease PF tone and stab pelvis, and if needed further training/educ for transfers managing core pressure, and understanding benefit of Kegel /TA w/transfer. Educate urge deference technique. Next: SB rehab: Add PF stretching (Happy Baby Pose). Monitor for behavioral changes for reduction of intra -abdominal pressure with transfers, exercise, and proper breathing with ADLs/ body mechanics. Perineal scar mob & gentle PF stretching (most tender 3-9 of PF clock) working towards use of Vemg placement for assessment. Add Ex's for postural changes as appropriate (when STM improved). Education in vulvar/genital care. Biofeedback assessment/ training for PF relaxation with vaginal/rectal/surface sensor(s) when vaginal infection cleared (1-2 wks). POC: Pt education, Manual therapy. Biofeedback with vaginal sensor. Therapeutic Exercises, Therapeutic Activities, Neuromuscular Reeducation.
--- NOTE | 2024-09-22 13:45 | PT.OPDS ---
Current Diagnoses Mixed incontinence (03/26/24) Other female genital prolapse (03/26/24) Visit Care Team Role Provider Type Donta Anglin MD Attending Provider Non-Staff Referring Provider Specialty: ON AIR ANNOUNCER Address: [address] [place] [address], [address], [place], [address] Email: Visit Number Visit Number Discharge Summary PT-OP-B Current Condition Start: 01/10/24 20:03 Freq: Status: Active Protocol: Document 01/16/24 07:32 LRN (Rec: 01/16/24 08:20 LRN [id number]) Current Condition History of Current Condition Onset Date 08/17/23 of angelo. Current Complaints Tightness across PF History of Current Condition Post bladder prolapse with first child 08/17/23. When she beared down she felt a bulge, then heaviness, then constant need to urinate all day. She feels heaviness ( initially felt bulge) with sit <>stand and with walking (baby in front pack carrier)/ exercising. Falling out feeling has gone away because of granulation tissue at opening was surgically fixed 2 -3 wks ago (tissue excised and cauterized). Pt delivered her 8#10 oz daughter in supine and reports had borderline 3rd degree tear up to sphincter and up to labia (top ), with 2 stitches in the sphincter ms to reinforce repair. She reports drinking a gallon of water a day ( reported wgt is 160#). Prior Treatments and Tests None Future Testing and Treatments Planned Is waiting to have Dr. garrett with general surgeon for bleeding with BMs. Treatment Goals Patient/Caregiver Goals Pt goals: Pt will improve PF strength to be able to sit<>stand and exercise without leaking, Pt will be able to strengthen posterior PF to eliminate uncontrolled flatulence. HEP. Prior Functional Status Baseline Function- Other During had occasional pain in the R hip below pubic symphasis, near vaginal opening. Current Functional Impairments (Reported) Functional Limitations- ADL's Postural deviations (elevated L shoulder and scapula, head/ neck tilted L). Pt is R handed and holds her baby on her L side to work. Functional Limitations- Recreation/ She reports currenty doing a Hobbies Marvin routine, Beach Body Ex on demand, that she did prior to . 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 No childcare at home while working. Borderline 3rd degree tear up to sphincter and up to labia with 2 stitches in spincter ms . Back/neck pain. PT-OP-C Subjective Start: 01/10/24 20:03 Freq: Status: Active Protocol: Document 03/26/24 07:31 LRN (Rec: 03/26/24 08:35 LRN [id number]) OP-PT Subjective Patient Comments Patient Comments Subtle things are different by not doing Kegels all the time , doing more relaxation. PF less tight sitting on toilet. Wand stretching with issued wand and her own wand, but akward. c/o L SIJ pain down lateral side of hip. PT-OP-I Pelvic Floor Start: 01/10/24 20:03 Freq: Status: Active Protocol: Document 01/16/24 07:32 LRN (Rec: 01/16/24 08:20 LRN [id number]) Pelvic Floor Assessment Urine Urinary Symptoms Urge Sensation,Prolapse, Hesitancy,Dribbling After Urination,Incomplete Emptying, Falling Out Feeling/Heavy Other Urinary Symptoms Heaviness feeling and tightness around the vaginal canal. No feeling of falling out. Leakage Size Small Leakage Cause Exercise,Urge Leaks Per Day unknown Voiding Frequency 8-12x/day Nocturia Leaks at night. Urinates 2x/ night,when Pads Used In 24 Hours 2 Urine Pad Type Panty Liner Bowel Bowel Symptoms Uncontrolled Flatulence,Pain Other Bowel Symptoms Sudden onset with feeling of not able to hold bowels. Has bleeding with BMs due to possibly fissure that is not healing. Pain with BMs. Drinks Metamucil and stool softner daily. Bowel Movement Frequency Daily [place] Stool Chart Type 1-7 4 Pelvic Clock Pelvic Clock 3-6 Tenderness Pelvic Clock 6-9 Tenderness Pelvic Clock Other Extreme tender at 2-9 of PF clock. Inter-Rectal Assessment Deferred due to pending assessment by MD tomorrow. Prolapse Cystocele Grade 2 Perineal Descent Resting Absent Bearing Absent Contraction Ability Manual Muscle Testing Left 2 Manual Muscle Testing Right 2 Manual Muscle Testing Anterior 1 Manual Muscle Testing Posterior 2 Muscle Endurance (Seconds) 6 Number of Quick Contractions In 10 4 Seconds PT-OP-J Posture/Palpation/Skin Start: 01/10/24 20:03 Freq: Status: Active Protocol: Document 01/16/24 07:32 LRN (Rec: 01/16/24 08:20 LRN [id number]) Posture Evaluation Position Standing Head/C-Spine Posture Side Bent Right,C-Spine Flattened Shoulder Posture (L) Elevated Scapula Posture (L) Elevated Pelvis Posture Anteriorly Tilted PT-OP-K Range of Motion Start: 01/10/24 20:03 Freq: Status: Active Protocol: Document 01/16/24 07:32 LRN (Rec: 01/16/24 08:20 LRN [id number]) Lumbar Spine Range of Motion Lumbar Spine Active Degrees Testing Position Standing Flexion 110 Extension 15 Rotation Left 45 Rotation Right 40 Lateral Flexion Left 10 Lateral Flexion Right 15 Hip Goniometric Range of Motion Hip Right Passive Testing Position Supine Internal Rotation 20 External Rotation 55 Left Passive Testing Position Supine Internal Rotation 25 External Rotation 50 PT-OP-M Strength Start: 01/10/24 20:03 Freq: Status: Active Protocol: Document 01/16/24 07:32 LRN (Rec: 01/16/24 08:20 LRN [id number]) Hip Strength Hip Manual Muscle Testing Right Flexion (L2) 4+ Good+ Extension (S1) 3+ Fair+ Adduction 3 Fair External Rotation 3+ Fair+ Internal Rotation 3+ Fair+ Left Flexion (L2) 4+ Good+ External Rotation 3+ Fair+ Internal Rotation 5 Normal PT-OP-T Assessment and Plan Start: 01/10/24 20:03 Freq: Status: Active Protocol: Document 09/22/24 13:43 KJ (Rec: 09/22/24 13:45 KJ Laptop) Physical Therapy Assessment Goals Five Impairment PF pain 3-9 of PF clock and at transverse perineum Short Term Goal (STG) Decrease PF pain with pressure with pt able to tolerate use of Vemg biofeedback for PF strengthening. STG Duration 02/28/24 Clay Puddler Goal (LTG) Decrease PF pain with pt able to perform 7-8 PF contractions in 10 secs and hold a PF contraction for 10 secs per Vemg assessment. LTG Duration 05/10/24 Four Impairment PF heaviness, occasional pain on R side PF (transv perineum) Short Term Goal (STG) Improve core strength with no doming present with head lift. STG Duration 02/28/24 Clay Puddler Goal (LTG) Improve PF/core strength and hip mobility to eliminate heaviness and pain of abdomen and R PF. LTG Duration 05/10/24 Three Impairment Stress urinary incontinence w/ primarily sit>stand, walking, exercise Short Term Goal (STG) Pt will demonstrate knowledge of urge deference technique to eliminate urinary leakage with a strong urge. STG Duration 02/28/24 [facility] Goal (LTG) Reduce PF pain and improve PF strength to be able to sit<> stand and exercise without leaking. LTG Duration 05/10/24 Two Impairment Posterior PF weakness w/ uncontrolled flatulence, PUF 17 Short Term Goal (STG) Pt educated in log roll transfer to decrease core pressure and improve biomedical equipment tech PF strength. 01/27/24: Review of transfer with core pressure relief from last session. 03/26/24: Reviewed log roll transfer w/TA/PF tight, for core stabilization STG Duration 02/28/24 progressed 03/26/24 (transfer w/biomedical equipment tech PF strengthening) [facility] Goal (LTG) Pt will be able to strengthen posterior PF to eliminate uncontrolled flatulence. 01/27/24: HEP of posterior resisted claudia BKFO with hips elevated. LTG Duration 05/10/24 progressed 01/27/24 One Impairment Pt lacks an independent self care PF HEP. Short Term Goal (STG) Pt will report reduced LBP with improved body mechanics for ADLs at home, and demonstrate knowledge of proper sitting/standing posture. 03/26/24: Initiated Sacral balancing and MFR. STG Duration 02/28/24 progressing 03/26/24 [facility] Goal (LTG) Pt will be independent in an effective self care HEP for core/hip strengthening and mobility ex's. 01/23/24: HEP: Transfers w/ core pressure mgmt/Kegel & Kegel/TA with hip ER & hip ER strengthening. 02/20/24: I/S in L Piriformis stretch (only with placing ankle over R knee) LTG Duration 04/10/24 progressed Progress Towards Goals Progress Towards Goals Progressing Toward Goals Physical Therapy Plan Discharge Physical Therapy Discharge Reasons Patient Request Discharge Comments Initial evaluation 01/16/24 with 4 follow up visits attended. Last visit was 03/26/24. Pt cancelled subsequent visits without rescheduling and will now be discharged.
== END 2024-09-22 14:36 | disposition home or self-care (01) ==
LOC: PHYS 07:30
PROVIDERS: Referring Provider Obstetrics & Gynecology; Visit Provider Obstetrics & Gynecology
DX: N81.89 Other female genital prolapse (principal); N39.46 Mixed incontinence
CPT/HCPCS: 97110; 97140; 97162; 97530; 97535